=== PATIENT | female | born 1965 | race African-American/Black ===

== ENCOUNTER 2022-06-03 22:04 | Emergency (ER) | payer OTHER ==
[~2022-06-03] VITALS: Ht 170.2 cm; Wt 90.7 kg
[2022-06-03] MEDS ORDERED: TRAMADOL HCL 50 MG TAB PO STA (22:24)
[2022-06-04] MEDS ORDERED: ULTRAM 50MG50 MG PO (01:06)
== END 2022-06-04 01:12 | disposition home or self-care (01) ==
LOC: ER 22:16
DX: S93.491A Sprain of other ligament of right ankle, initial encounter (principal); X50.1XXA Overexertion from prolonged static or awkward postures, initial encounter; Y93.01 Activity, walking, marching and hiking; Y92.89 Other specified places as the place of occurrence of the external cause; I10 Essential (primary) hypertension
CPT/HCPCS: 99283

== ENCOUNTER 2025-06-24 06:57 | Observation (INO) | payer BC, OTHER ==
[2025-06-21 10:02] LABS: BASOPHILS % 0.6 % (0.0-1.0); EOSINOPHILS % 4.8 % (0.0-6.0); LYMPHOCYTES % 38.4 % (18.0-39.1); MONOCYTES % 10.5 % (4.4-11.3); NEUTROPHILS % 45.5 % (38.7-80.0); RED CELL DISTRIBUTION WIDTH 15.1 % (11.7-14.4)
[~2025-06-24] VITALS: Ht 170.2 cm; Wt 102.5 kg
[~2025-06-24 06:57] MED LIST: AMLODIPINE BESY10 MG PO; CELEBREX200 MG PO; CETIRIZINE HCL10 M1 PO; FLONASE ALLERG9.9 ML INH; IBUPROFEN200 MG PO; NEURONTIN300 MG PO; ULTRAM 50MG50 MG PO
[2025-06-24] MEDS ORDERED: ROPIVACAINE/EPI/CLONIDINE/KET 50 ML SYRINGE INJ ONE (08:00)
[2025-06-24] MEDS: CEFAZOLIN SODIUM 2 GM ONE (08:15)
[2025-06-24] MEDS: CELECOXIB 200 MG CAP ONE (08:17)
[2025-06-24] MEDS: DEXAMETHASONE SOD PHOS 10 MG/1 ML VIAL ONE (08:18)
[2025-06-24] MEDS: LACTATED RINGER'S 1,000 ML ONE (08:18)
[2025-06-24] MEDS: GABAPENTIN 300 MG CAP ONE (08:19)
[2025-06-24] MEDS ORDERED: LIDOCAINE HCL 2% LOCAL INJ 5 ML SDV VIAL INJ ONE (09:01)
[2025-06-24] MEDS ORDERED: PROPOFOL IV EMULSION 10 MG/ML 20 ML VIAL ONE (09:01)
[2025-06-24] MEDS ORDERED: ACETAMINOPHEN 1000 MG/100 ML 100 ML IV ONE (09:01)
[2025-06-24] MEDS ORDERED: KETAMINE HCL INJ 50 MG/ML 10 ML VIAL ONE (09:31)
[2025-06-24] MEDS ORDERED: FAMOTIDINE 20 MG/2 ML VIAL IV ONE (09:31)
[2025-06-24] MEDS ORDERED: GLYCOPYRROLATE INJ 0.2 MG/ML VIAL ONE (09:31)
[2025-06-24] MEDS ORDERED: FENTANYL CITRATE/PF 100MCG/2 ML INJ ONE (09:43)
[2025-06-24] MEDS ORDERED: ONDANSETRON HCL INJ 2MG/ML 2ML 2 MG/ML VIAL ONE (10:15)
[2025-06-24] MEDS ORDERED: DOCUSATE SODIUM 100 MG CAP PO PRN (10:30)
[2025-06-24] MEDS: SODIUM CHLORIDE 0.9% 1000ML 1,000 ML IV SCH (10:30)
[2025-06-24] MEDS ORDERED: DIPHENHYDRAMINE HCL INJ 50 MG/ML VIAL IV PRN (10:30)
[2025-06-24] MEDS ORDERED: ONDANSETRON HCL INJ 2MG/ML 2ML 2 MG/ML VIAL IV PRN (10:30)
[2025-06-24] MEDS: HYDROCODONE/APAP 5MG-325MG TAB PO PRN (11:30)
[2025-06-24 15:57] VITALS: BP 155/82; PULSE 69; RESP 18; TEMP 97.9; O2SAT 98
[2025-06-24 16:45] VITALS: PULSE 76; RESP 18; O2SAT 98
[2025-06-24 16:55] VITALS: BP 155/82; PULSE 76; RESP 18; TEMP 97.9; O2SAT 98
[2025-06-24] MEDS: HYDROCODONE/APAP 7.5MG-325MG 1 EA TAB PO PRN (17:16)
[2025-06-24] MEDS: CELECOXIB 200 MG CAP PO SCH (17:16)
[2025-06-24 20:17] VITALS: BP 153/78; PULSE 70; RESP 20; TEMP 98; O2SAT 98
[2025-06-24] MEDS: HYDROMORPHONE 1MG/1ML INJ IV PRN (20:28)
[2025-06-24] MEDS: ASPIRIN 325 MG TAB PO SCH (20:29)
[2025-06-24 20:40] VITALS: PULSE 70; RESP 18; O2SAT 98
[2025-06-24 23:20] VITALS: BP 147/72; PULSE 68; RESP 19; TEMP 97.9; O2SAT 95
[2025-06-25] VITALS: BP 147/72; PULSE 68; RESP 19; TEMP 97.9; O2SAT 95
[2025-06-25 08:30] VITALS: BP 140/72; PULSE 90; RESP 18; TEMP 97.8; O2SAT 98
[2025-06-25] MEDS: GABAPENTIN 300 MG CAP PO SCH (08:32)
[2025-06-25] MEDS: AMLODIPINE BESYLATE 10 MG TAB PO SCH (08:32)
[2025-06-25 08:50] VITALS: BP 140/72; PULSE 90; RESP 18; TEMP 97.8; O2SAT 98
[2025-06-25 10:28] VITALS: PULSE 78; RESP 16; O2SAT 98
[2025-06-25] MEDS ORDERED: ACETAMINOPHEN 1000 MG/100 ML IV PRN (10:30)
== END 2025-06-25 11:45 | disposition home or self-care (01) ==
LOC: OR 06:57 → PACU V 15:19 → IMCU 15:51 → MED/SURG 17:57
PROVIDERS: ADMIT Specialist; ATTEND Specialist
DX: M17.11 Unilateral primary osteoarthritis, right knee (principal); I10 Essential (primary) hypertension; D64.9 Anemia, unspecified; E66.812 Obesity, class 2; Z68.35 Body mass index [BMI] 35.0-35.9, adult; Z72.0 Tobacco use; Z01.810 Encounter for preprocedural cardiovascular examination; Z01.812 Encounter for preprocedural laboratory examination
CPT/HCPCS: 27447; 36415 ×2; 73560; 85014; 85018; 85025; 86850; 86900; 93005; 94799 ×2; 97110 ×2; 97116; 97162; 97530; C1713 ×2; C1776 ×3; G0378 ×2; J0131; J0690 ×2; J1100; J1171 ×2; J1308; J2003; J2405; J2704; J3010; J7030 ×2; J7121

== ENCOUNTER 2025-07-08 08:00 | Outpatient (RCR) | payer OTHER | END 2025-07-09 | LOC: PT 08:00 | PROVIDERS: ATTEND Physician Assistant | DX: Z47.1 Aftercare following joint replacement surgery (principal); Z96.651 Presence of right artificial knee joint ==